=== PATIENT | male | born 1995 | race Two or more races ===

== ENCOUNTER 2025-03-26 12:06 | Day surgery (SDC) | payer SELFPAY ==
[2025-03-21 09:50] LABS: Urine Bacteria None Seen /hpf (None Seen)
[2025-03-21 09:58] LABS: Urine Blood Negative /uL (Negative); Urine Clarity Clear (Clear); Urine Color Colorless (Yellow); Urine Protein, UAD Negative (Negative); Urine Squamous Epithelial Cell None Seen /hpf (<5); Urine Urobilinogen Normal (Negative)
[2025-03-21 10:07] LABS: Basophils # (auto) 0 10 ^3/uL (0-0.2); Basophils % (auto) 0.9 % (0.0-2.0); Eosinophils # (auto) 0.2 10 ^3/uL (0-0.8); Eosinophils % (auto) 3.7 % (0.0-7.0); Hematocrit 51.4 % (41.0-53.0); Hemoglobin 17.6 g/dL (13.5-17.5); Lymphocytes # (auto) 1.4 10 ^3/uL (0.4-5.4); Mean Corpuscular Hemoglobin 31.3 pg (28.0-32.0); Mean Corpuscular Hgb Conc. 34.2 g/dL (32.0-36.0); Mean Corpuscular Volume 91.5 fL (80.0-100.0); Monocytes # (auto) 0.4 10 ^3/uL (0-1.3); Neutrophils # (auto) 3.1 10 ^3/uL (1.6-8.6); Neutrophils % (auto) 60.4 % (37.0-80.0); Nucleated Red Blood Cells % 0.1 %; Platelet Count (auto) 232 10^3/uL (140-450); Red Blood Cells 5.62 10^6/uL (4.5-5.90); Red Cell Distribution Width 13.6 % (11.8-14.3); White Blood Cell 5.2 10^3/uL (4.4-10.8)
[2025-03-21 10:13] LABS: INR 1.08 (0.9-1.15); Partial Thromboplastin Time 29.3 SEC (24.5-34.5); Prothrombin Time 11.4 sec (9.3-11.8)
[2025-03-21 10:17] LABS: Albumin 4.4 g/dL (3.2-4.8); Alkaline Phosphatase 57 U/L (46-116); Anion Gap 7 (5-15); BUN/Creatinine Ratio 17.6 (10.0-20.0); Blood Urea Nitrogen 19 mg/dL (9-23); Calcium 10.1 mg/dL (8.7-10.4); Carbon Dioxide 29 mmol/L (20-31); Chloride 101 mmol/L (98-107); Glucose 97 mg/dL (74-106); Potassium 4.2 mmol/L (3.5-5.1); Sodium 137 mmol/L (136-145); Total Protein 7.1 g/dL (5.7-8.2)
[2025-03-21 10:18] LABS: Alanine Aminotransferase 47 U/L (7-40); Aspartate Aminotransferase 40 U/L (13-40); Bilirubin, Total 0.9 mg/dL (0.2-1.0)
[~2025-03-26] VITALS: Ht 177.8 cm; Wt 91.6 kg
[~2025-03-26 12:06] MED LIST: DexAMETHasone SOD PHOS 10MG/1ML VIAL INJ ONE; GLYCOPYRROLATE 0.2 MG/ML 1ML VIAL ONE; HYDROmorphone HCL 2 MG/ML VL/or syr ONE; KETAMINE 50mg/ML 10ml Vial 10 ML ONE; KETOROLAC TROMETH 30 MG/ML 1ML VIAL ONE; LIDOCAINE 2% (LOCAL ANESTH.) PF 5ml SDV ONE; MIDAZOLAM HCL 2MG/2ML 2ml VIAL (1mg/ml) ONE; PROPOFOL 10 MG/ML 20 ML IV ONE; ROPIVACAINE 0.5% (5MG/ML) 20ML AMPULE IJ ONE; fentaNYL CITRATE 100 MCG/2 ML VL ONE
[2025-03-26] MEDS: ceFAZolin 2 GM/D5W50ml 50 ML IV ONE (14:20)
[2025-03-26 15:26] VITALS: TEMP 97.8; O2SAT 99
[2025-03-26] MEDS ORDERED: HYDROmorphone HCL 2 MG/ML VL/or syr IV PRN (16:00)
[2025-03-26] MEDS ORDERED: ONDANSETRON HCL 4 MG/2 ML VIAL IV ONE (16:00)
[2025-03-26 16:20] VITALS: BP 121/85; PULSE 107; RESP 15; O2SAT 98
--- NOTE | 2025-03-26 18:06 | DVHOP ---
DATE OF SURGERY: 03/26/2025 PREOPERATIVE DIAGNOSIS: Left knee lateral meniscus tear. POSTOPERATIVE DIAGNOSIS: Left knee lateral meniscus tear. PROCEDURE PERFORMED: Left knee arthroscopy with lateral meniscus repair. ANESTHESIA: General with adductor canal block. COMPLICATIONS: None. IMPLANTS USED: [employer] FiberStitch x3. DATABASE ADMINISTRATION MANAGER: Antonio Davis PA-C. INDICATION FOR PROCEDURE: The patient is a 29-year-old male who presented to the clinic with a history of knee pain. Clinical and radiological evaluation demonstrated a lateral meniscus tear. Nonoperative and operative management options were discussed. He had failed nonoperative management and surgery in the form of knee arthroscopy with meniscus repair was discussed with him. Benefits, risks, surgery, and alternatives were discussed. The complications of the surgeries such as neurovascular injury, infection, arthrofibrosis, loss of limb or life were discussed. The patient decided to proceed with a surgical option. PROCEDURE IN DETAIL: The patient was identified in the preoperative holding area and the surgical site was marked. The consent was verified. He was brought into the operating room and placed supine on the operating table. General anesthesia was administered. Intravenous antibiotics were given. The extremity was prepped and draped in the usual sterile manner. A timeout was called out to confirm the identity of the patient, the nature of surgery, the site of surgery, the availability of implants, and x-rays and allergies to medications. Standard anterolateral portal was established. A 30-degree scope was inserted. A standard anteromedial portal was established, a probe was inserted and the findings were as follows: * Complex lateral meniscus tear. * Intact lateral compartment cartilage, except for grade 2 chondromalacia, lateral tibial plateau, diffuse, posterior aspect. * Intact medial meniscus. * Intact medial articular cartilage. * Intact patellofemoral articular cartilage. Lateral meniscus tear was appropriate. This was a complex tear. This was from the anterior to the posterior horn. Large cyst was noted that was decompressed. Anterior flap tear was noted. This was debrided and a partial meniscectomy was performed with the anterior horn. The tear continued all the way to the posterior portion. This was a horizontal tube edge. I decided to repair this given the young age of the patient. Three all-inside devices were used. These are FiberStitch devices. These were used as per dope worker's guidelines. The first anchor was deployed, the second anchor was deployed, and the self-locking stitching knot was applied. Excellent fixation was noted. Three sutures were passed from the superior surface of the meniscus to the inferior surface to form a good repair configuration. Irrigation was given. The skin incisions were closed with Monocryl. Sterile dressing was applied. The knee was placed in a hinged range of motion brace at -10 to 70 degrees. DISPOSITION: Good. The patient was extubated and taken to the recovery without any complications. PLAN: To remain toe-touch weightbearing with range of motion from 0-70 degrees, to continue this for 3 weeks, after 3 weeks, partial weightbearing for 3 weeks and then as tolerated. Range of motion after 3 weeks as tolerated. MD JOHAN Justin/NIMCO TID: [id number] RECEIPT: [id number] MTDD
== END 2025-03-26 16:30 | disposition home or self-care (01) ==
LOC: SUR 12:06
PROVIDERS: ATTEND Orthopaedic Surgery Sports Medicine
DX: S83.272A Complex tear of lateral meniscus, current injury, left knee, initial encounter (principal); X58.XXXA Exposure to other specified factors, initial encounter; Y93.89 Activity, other specified; Y92.89 Other specified places as the place of occurrence of the external cause; Y99.8 Other external cause status; Z79.899 Other long term (current) drug therapy
CPT/HCPCS: 29882; 36415; 80053; 81001; 85025; 85610; 85730; J0690; J1100; J1171; J1885; J2003; J2250; J2704; J2795; J3010